=== PATIENT | male | born 1985 | race Hispanic/Latino ===

== ENCOUNTER → 2017-10-11 | Day surgery (SDC) | payer OTHER ==
[2017-10-10 16:52] LABS: BASOPHILS # (AUTO) 0.1 (0.0-0.1); BASOPHILS % 0.9 % (0.0-1.0); EOSINOPHILS # (AUTO) 0.3 (0.0-0.4); EOSINOPHILS % 3.3 % (0.0-6.0); HEMATOCRIT 43.4 % (38.2-49.6); HEMOGLOBIN 15.7 g/dL (14.0-18.0); LYMPHOCYTES # (AUTO) 3.4 (1.0-3.2); LYMPHOCYTES % 33.8 % (18.0-39.1); MEAN CORPUSCULAR HEMOGLOBIN 30.9 pg (28-32); MEAN CORPUSCULAR HGB CONC 36.2 g/dL (31-35); MEAN CORPUSCULAR VOLUME 85.4 fL (81-99); MONOCYTES # (AUTO) 0.9 (0.2-0.8); MONOCYTES % 8.4 % (4.4-11.3); NEUTROPHILS # (AUTO) 5.4 (2.1-6.9); PLATELET COUNT 264 x10e3/uL (140-360); RED BLOOD COUNT 5.08 x10e6/uL (4.3-5.7); RED CELL DISTRIBUTION WIDTH 11.9 % (11.7-14.4)
[2017-10-10 17:05] LABS: ANION GAP 12.6 mmol/L (8-16); BLOOD UREA NITROGEN 11 mg/dL (7-26); BUN/CREATININE RATIO 12 (6-25); CALCIUM 9.4 mg/dL (8.4-10.2); CARBON DIOXIDE 26 mmol/L (22-29); CHLORIDE 106 mmol/L (98-107); CREATININE, SERUM 0.95 mg/dL (0.72-1.25); EST GLOMERULAR FILTRATION RATE > 60 ML/MIN (60-); GLUCOSE 99 mg/dL (74-118); POTASSIUM 3.6 mmol/L (3.5-5.1); SODIUM 141 mmol/L (136-145)
[~2017-10-11] MED LIST: BUPIVACAINE 0.25%/EPI 30ML SDV INJ ONE; CEFAZOLIN SOD 1 GM VIAL ONE; DEXAMETHASONE SOD PHOS INJ 4 MG/ML VIAL ONE; FENTANYL CITRATE/PF 100MCG/2 ML INJ ONE; KETOROLAC TROMETHAMINE 30 MG/ML VIAL ONE; LIDOCAINE HCL 1% LOCAL INJ 20 ML VIAL ONE; LIDOCAINE HCL 2% LOCAL INJ 5 ML SDV VIAL INJ ONE; MIDAZOLAM HCL 2 MG/2 ML VIAL ONE; ONDANSETRON HCL INJ 2 MG/ML VIAL ONE; PROPOFOL IV EMULSION 10 MG/ML 20 ML VIAL ONE; SEVOFLURANE INHAL SOLN 250 ML PEN BTL ONE; SODIUM CHLORIDE 0.9% 50ML 50 ML ONE
--- NOTE | 2017-10-11 09:15 | Operative Report ---
DATE OF PROCEDURE: October 11, 2017 PREOPERATIVE DIAGNOSIS: Epidermal inclusion cyst of the right frontal area. POSTOPERATIVE DIAGNOSIS: Epidermal inclusion cyst of the right frontal area. PROCEDURE PERFORMED: Excision of epidermal inclusion cyst, right frontal area. ANESTHESIA: General. ESTIMATED BLOOD LOSS: Minimal. DRAINS: None. COMPLICATIONS: None. INDICATIONS AND FINDINGS: This patient is a 32-year-old male who complains of a lump on the right temporal area present for several months. He had been initially treated with antibiotics. INTRAOPERATIVE FINDINGS: A 1.5 cm epidermal inclusion cyst of the right frontal scalp region. The entire lining of the cyst was removed without leaving any residual. DESCRIPTION OF PROCEDURE: With the patient lying on the operating table in the supine position and after administration of general anesthesia, he was prepped and draped for excision of cyst, right frontal region. Pre-emptive anesthesia was given with 0.25% Marcaine with epinephrine as a block, and also to improve hemostasis in this highly vascularized area. An incision was made directly over the palpable cyst, which was located just distal to the hairline. The dissection was carried down through the skin and subcutaneous tissue. The cyst was located in the subcutaneous plane superior to the platysma. It was dissected free from the tissues and excised with all its lining. Bleeding points were cauterized along the platysma and subcutaneous layers. The wound was copiously irrigated with saline solution, and then closed in 2 layers using 3-0 Vicryl for the soft tissues and the skin was closed using interrupted 4-0 silk simple sutures. Sterile dressing was applied. The patient tolerated the procedure well, and taken to the recovery room in stable condition. Job#: [id number] YULI
== END | disposition home or self-care (01) ==
LOC: OR 05:47
PROVIDERS: ATTEND Surgery
DX: D23.4 Other benign neoplasm of skin of scalp and neck (principal); L72.0 Epidermal cyst; Z01.812 Encounter for preprocedural laboratory examination; Z68.32 Body mass index [BMI] 32.0-32.9, adult
CPT/HCPCS: 11422; 12031; 36415; 80048; 85025; 88304; J0690; J1100; J1885; J2001; J2250; J2405

== ENCOUNTER → 2019-02-27 | Day surgery (SDC) | payer OTHER ==
[2019-02-23 12:29] LABS: BASOPHILS # (AUTO) 0.1 (0.0-0.1); BASOPHILS % 0.8 % (0.0-1.0); EOSINOPHILS # (AUTO) 0.2 (0.0-0.4); EOSINOPHILS % 1.8 % (0.0-6.0); HEMATOCRIT 46.7 % (38.2-49.6); HEMOGLOBIN 16.8 g/dL (14.0-18.0); LYMPHOCYTES # (AUTO) 3.2 (1.0-3.2); LYMPHOCYTES % 30.2 % (18.0-39.1); MEAN CORPUSCULAR HEMOGLOBIN 30.6 pg (28-32); MEAN CORPUSCULAR VOLUME 85.1 fL (81-99); MONOCYTES # (AUTO) 0.6 (0.2-0.8); MONOCYTES % 6.1 % (4.4-11.3); NEUTROPHILS # (AUTO) 6.3 (2.1-6.9); NEUTROPHILS % 60.4 % (38.7-80.0); PLATELET COUNT 287 x10e3/uL (140-360); RED BLOOD COUNT 5.49 x10e6/uL (4.3-5.7); RED CELL DISTRIBUTION WIDTH 11.9 % (11.7-14.4)
[2019-02-23 12:50] LABS: ANION GAP 12.6 mmol/L (8-16); BLOOD UREA NITROGEN 14 mg/dL (7-26); BUN/CREATININE RATIO 16 (6-25); CALCIUM 9.4 mg/dL (8.4-10.2); CARBON DIOXIDE 27 mmol/L (22-29); CHLORIDE 101 mmol/L (98-107); CREATININE, SERUM 0.87 mg/dL (0.72-1.25); EST GLOMERULAR FILTRATION RATE > 60 ML/MIN (60-); GLUCOSE 85 mg/dL (74-118); POTASSIUM 3.6 mmol/L (3.5-5.1); SODIUM 137 mmol/L (136-145)
[~2019-02-27] MED LIST changes: -CEFAZOLIN SOD 1 GM VIAL ONE; +CEFAZOLIN SOD 1 GM/NS 50ML 50 ML IV ONE; +GLYCOPYRROLATE INJ 1MG/ 5 ML SYR ONE; -LIDOCAINE HCL 1% LOCAL INJ 20 ML VIAL ONE; +NEOSTIGMINE 5 MG/5ML SYR ONE; -ONDANSETRON HCL INJ 2 MG/ML VIAL ONE; +ONDANSETRON HCL INJ 2MG/ML 2ML 2 MG/ML VIAL ONE; +ROCURONIUM BROMIDE 10 MG/ML 5ML VIAL ONE; -SODIUM CHLORIDE 0.9% 50ML 50 ML ONE
[2019-02-27 14:20] VITALS: BP 125/84
--- NOTE | 2019-02-27 20:19 | Operative Report ---
DATE OF PROCEDURE: 02/27/2019 SURGEON: Iftikhar Bustillos MD PREOPERATIVE DIAGNOSIS: Periumbilical ventral hernia. POSTOPERATIVE DIAGNOSIS: Periumbilical ventral hernia. PROCEDURE PERFORMED: Repair of periumbilical ventral hernia. ANESTHESIA: General. ESTIMATED BLOOD LOSS: Minimal. DRAINS: None. COMPLICATIONS: None. INDICATIONS AND FINDINGS: This patient is a 34-year-old male, admitted for repair of umbilical bulge, it had been present for several months. He has some discomfort. No GI symptoms. INTRAOPERATIVE FINDINGS: The patient had a periumbilical ventral hernia with incarcerated omentum. Partial omentectomy was performed. The defect itself was not very large, so we placed a Proceed ventral patch small size covering the defect in all directions. DESCRIPTION OF PROCEDURE: With the patient lying on the operative table in the supine position after administration of general anesthesia, he was prepped and draped for repair of periumbilical ventral hernia. An elliptical incision was made inferior to the umbilicus and carried out through the skin and subcutaneous tissue until the hernia was identified. The sac was excised. The omentum, which was incarcerated, and even though it was not strangulated, I have to excise it because I could not reduce it. We serially clamped the omentum with 2-0 Vicryl and transected, then reduced into the intraabdominal cavity. Then, we placed a PVP mesh small size in the intraabdominal location, it was secured to the fascia through the straps using 2-0 Ethibond sutures, then cut the straps and then loosely approximated the weakened fascia over the mesh to create another buried to the exterior with also 2-0 Ethibond sutures. The wound irrigated. Bleeding points cauterized. The fascia infiltrated with 0.25% Marcaine with epinephrine as well as the soft tissues. Then, the skin was closed in two layers using 2-0 Vicryl for the soft tissues and 3-0 silk for the skin. Sterile dressing was applied. The patient tolerated the procedure well and taken to the recovery room in stable condition. MD SORAYA Hawkins/KELSEAL /[id number]
== END | disposition home or self-care (01) ==
LOC: OR 09:30
PROVIDERS: ATTEND Surgery
DX: K42.0 Umbilical hernia with obstruction, without gangrene (principal); E66.9 Obesity, unspecified; Z01.812 Encounter for preprocedural laboratory examination
CPT/HCPCS: 36415; 49587; 80048; 85025; C1781; J0690; J1100; J1885; J2001; J2250; J2405; J2704; J3010; J3490